=== PATIENT | male | born 1980 | race American Indian/Alaskan Native ===

== ENCOUNTER 2018-03-19 19:10 | Emergency (ER) | payer SELFPAY ==
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
[2018-03-19] MEDS ORDERED: Amoxicillin/Clavulanate K 875-125 MG Tab ONE (19:50)
== END 2018-03-19 20:10 | disposition home or self-care (01) ==
LOC: LB.ED 19:10
DX: S80.211A Abrasion, right knee, initial encounter (principal); S80.811A Abrasion, right lower leg, initial encounter; S40.811A Abrasion of right upper arm, initial encounter; F10.129 Alcohol abuse with intoxication, unspecified; V28.5XXA Motorcycle passenger injured in noncollision transport accident in traffic accident, initial encounter
CPT/HCPCS: 99283; A9270

== ENCOUNTER 2021-09-22 15:43 | Emergency (ER) | payer OTHER ==
[2021-09-22] MEDS: Lidocaine 1% with EPINEPHrine 1:100,000 50 ML MDV INFILT ONE (15:50)
[2021-09-22] MEDS: Diphtheria,Pertussis(Acell),Tetanus Vaccine 0.5 ML SDV IM ONE (16:00)
== END 2021-09-22 16:13 | disposition home or self-care (01) ==
LOC: LB.ED 15:43
DX: S51.811A Laceration without foreign body of right forearm, initial encounter (principal); Z23 Encounter for immunization; W27.0XXA Contact with workbench tool, initial encounter; Y99.0 Civilian activity done for income or pay
CPT/HCPCS: 12001; 90471; 90715; 99282-25

== ENCOUNTER 2024-02-27 21:40 | Emergency (ER) | payer SELFPAY ==
[2024-02-27] MEDS: Bacitracin Oint 1 GM U/D Packet TOP ONE (22:25)
[2024-02-27] MEDS: Sodium Chloride 0.9% 1,000 ML IV SCH (22:49)
[2024-02-27] MEDS: LORazepam 2 MG/ML SDV IVPUSH ONE (22:54)
[2024-02-27] MEDS: LORazepam 2 MG/ML SDV ONE (22:55)
[2024-02-27] MEDS: Thiamine 200 MG/2 ML MDV IM ONE (22:59)
[2024-02-28] MEDS: Diazepam 10 MG Tab PO ONE (01:43)
== END 2024-02-28 08:40 | disposition home or self-care (01) ==
LOC: LB.ED 21:40
DX: S51.812A Laceration without foreign body of left forearm, initial encounter (principal); S80.212A Abrasion, left knee, initial encounter; F10.920 Alcohol use, unspecified with intoxication, uncomplicated; X58.XXXA Exposure to other specified factors, initial encounter
CPT/HCPCS: 36415; 80307; 82947; 96361; 96372; 96374; 99284; A9270; J2060; J3411; J7030